=== PATIENT | male | born 1955 | race Caucasian/White ===

== ENCOUNTER 2017-07-07 14:01 | Outpatient (CLI) | payer OTHER ==
--- NOTE | 2017-07-07 15:40 | RAD ---
PA AND LATERAL VIEWS CHEST: Date: 07/07/17 HISTORY: Disability assessment. Exposed to asbestos. FINDINGS: There is blunting of the left costophrenic angle with linear scarring in the left lung base. No lobar consolidation, pneumothoraces, or right-sided pleural effusion is seen. IMPRESSION: Scarring versus small left pleural effusion. POS: [facility]
--- NOTE | 2017-07-07 15:47 | RAD ---
LUMBAR SPINE 3 VIEWS: HISTORY: Disability assessment. FINDINGS: The lumbar vertebral maintain height. There is slight retrolisthesis at L3-4. Mild disk narrowing a t L2-3 and L3-4. Facet hypertrophy is prominent at L3-4, L4-5, and L5-S1. Mild anterior osteophytes . IMPRESSION: Mild to moderate degenerative changes as described. POS: [facility]
== END 2017-07-07 14:02 | disposition home or self-care (01) ==
LOC: NAV RAD 14:01
PROVIDERS: ATTEND Family Medicine
DX: S39.92XA Unspecified injury of lower back, initial encounter (principal); C34.90 Malignant neoplasm of unspecified part of unspecified bronchus or lung; M54.2 Cervicalgia; Z87.01 Personal history of pneumonia (recurrent); M47.896 Other spondylosis, lumbar region
CPT/HCPCS: 71046; 72100